=== PATIENT | female | born 1990 | race Caucasian/White ===

== ENCOUNTER 2023-04-09 19:00 | Emergency (ER) | payer BC ==
[2023-04-09] MEDS ORDERED: Naloxone 0.4 MG/ML SDV IVPUSH PRN (19:14)
[2023-04-09] MEDS: Ondansetron 4 MG/2 ML SDV IVPUSH ONE (19:20)
[2023-04-09] MEDS: Sodium Chloride 0.9% 1,000 ML IV ONE (19:20)
[2023-04-09] MEDS: fentaNYL 50 MCG/ML SDV IVPUSH ONE (19:21)
[2023-04-09 19:22] LABS: BASOPHILS PERCENT AUTO 0.2 % (0.2-1.2); EOSINOPHILS ABSOLUTE AUTO 0.2 x10^3/uL (0.0-0.5); EOSINOPHILS PERCENT AUTO 1.7 % (0.0-4.0); HEMATOCRIT 46.5 % (33.0-47.0); HEMOGLOBIN 16.3 g/dL (12.0-16.0); IMMATURE GRAN ABSOLUTE AUTO 0.01 x10^3/uL (0.00-0.07); LYMPHOCYTES ABSOLUTE AUTO 1.2 x10^3/uL (1.0-4.8); LYMPHOCYTES PERCENT AUTO 9.3 % (25.0-50.0); MEAN CORPUSCULAR HEMOGLOBIN 30.9 pg (26.0-32.0); MEAN CORPUSCULAR HGB CONC 35.1 g/dL (32.0-36.0); MEAN CORPUSCULAR VOLUME 88.1 fL (78.0-93.0); MONOCYTES ABSOLUTE AUTO 0.4 x10^3/uL (0.0-0.8); MONOCYTES PERCENT AUTO 3.2 % (2.0-11.0); NEUTROPHILS ABSOLUTE AUTO 10.7 x10^3/uL (1.8-7.7); NEUTROPHILS PERCENT AUTO 85.5 % (50.0-80.0); PLATELET COUNT,PLT 280 x10^3/uL (130-400); RED BLOOD CELL COUNT 5.28 x10^6/uL (4.00-5.50); WHITE BLOOD CELL COUNT,WBC 12.6 x10^3/uL (4.0-10.0)
[2023-04-09] MEDS: Pantoprazole 40 MG Vial IVPUSH ONE (19:22)
[2023-04-09 19:37] LABS: A/G RATIO 1.06; ALANINE AMINOTRANSFERASE,ALT 31 U/L (14-59); ALBUMIN 3.8 g/dL (3.4-5.0); ALKALINE PHOSPHATASE 57 U/L (46-116); ASPARTATE AMNIOTRANSFERASE,AST 24 U/L (15-37); BILIRUBIN TOTAL 0.5 mg/dL (0.2-1.0); BLOOD UREA NITROGEN,BUN 26 mg/dL (7-18); CALCIUM 9.2 mg/dL (8.5-10.1); CARBON DIOXIDE,CO2 22 mmol/L (21-32); CHLORIDE,CL 101 mmol/L (98-107); GLUCOSE RANDOM 153 mg/dL (70-99); LIPASE 58 U/L (19-71); POTASSIUM,K 3.6 mmol/L (3.5-5.1); PROTEIN TOTAL,TP 7.4 g/dL (6.4-8.2); SODIUM,NA 139 mmol/L (136-145)
[2023-04-09 19:38] LABS: ANION GAP 19.6 mmol/L (5-15); ESTIMATED GFR 76 mL/min (>=60)
[2023-04-09 19:39] LABS: C-REACTIVE PROTEIN < 0.50 mg/dL (<=0.50)
[2023-04-09] MEDS: Iopamidol 612 MG/ML 100 ML Bottle IVPUSH ONE (20:54)
[2023-04-09] MEDS: Take Home: Ondansetron 4 MG Tab.DIS, 5 Tab Pack PO ONE (21:50)
== END 2023-04-09 21:52 | disposition home or self-care (01) ==
LOC: MERGE 19:00 → VM.ED 19:00
DX: K29.70 Gastritis, unspecified, without bleeding (principal)
CPT/HCPCS: 74177; 80053; 83690; 85025; 86140; 96361; 96374; 96375; 99284; C9113; J2405; J3010; J7030; Q0162; Q9967

== ENCOUNTER 2023-05-13 11:34 | Day surgery (SDC) | payer BC ==
[2023-05-13] MEDS: Lactated Ringers 1,000 ML IV SCH (11:44)
[2023-05-13] MEDS ORDERED: fentaNYL 100 MCG/2 ML SDV ONE (13:33)
[2023-05-13] MEDS ORDERED: Propofol 200 MG/20 ML SDV ONE ×4 (13:33→14:46)
== END 2023-05-13 16:02 | disposition home or self-care (01) ==
LOC: VM.SDS 11:34
PROVIDERS: ATTEND Family Medicine
DX: R10.13 Epigastric pain (principal); F32.A Depression, unspecified; F41.9 Anxiety disorder, unspecified; Z79.899 Other long term (current) drug therapy
CPT/HCPCS: 00813; 43239; 45378; J2704; J3010; J7120